=== PATIENT | male | born 1945 | race Two or more races ===

== ENCOUNTER → 2017-01-11 | Day surgery (SDC) | payer OTHER ==
[~2017-01-11] MED LIST: KETOROLAC TROMETHAMINE 30 MG/ML (IVP) VIAL IV PUSH ONE; MIDAZOLAM HCL 2 MG/2 ML VIAL ONE; MORPHINE SULFATE 4 MG/ML INJ ONE; PROPOFOL 100 MG/10 ML INJ IV ONE
--- NOTE | 2017-01-11 10:37 | MP ---
cc: JUNIOR SOSA M.D. DATE OF SURGERY 01/11/2017 PREOPERATIVE DIAGNOSIS Left knee stiffness following total knee arthroplasty. POSTOPERATIVE DIAGNOSIS Left knee stiffness following total knee arthroplasty. PROCEDURE Left knee manipulation under anesthesia. ANESTHESIA General SURGEON Junior Sosa MD ESTIMATED BLOOD LOSS None COMPLICATIONS None known. INDICATION Robbie Concepcion is a 71-year-old male who underwent left total knee arthroplasty and has subsequent stiffness of his knee. He is failing conservative management and therapy and indicated for manipulation under anesthesia. The risks and benefits thoroughly discussed and a detailed informed consent was obtained. PROCEDURE The patient brought into the operating room, he was placed under deep monitored anesthetic care and we measured his range of motion which was 0/20/80 degrees. We then proceeded with gentle manipulation into flexion and then back in extension and then repeated this maneuver multiple times. Maximal flexion was 140 degrees and gravity flexion was to 130. Maximum extension was 5 degrees of hyperextension and resting gravity extension was 2 degrees of hyperextension. No instability with varus/valgus stress testing. No unusual crepitation. The patient was awoken return recovery room in stable condition. MD MAGDALENA Cameron/TASHIA /10:17 AM /10:33 AM
== END | disposition home or self-care (01) ==
LOC: ESDC 08:05
PROVIDERS: ATTEND Orthopaedic Surgery Sports Medicine
DX: M24.662 Ankylosis, left knee (principal); Z96.652 Presence of left artificial knee joint
CPT/HCPCS: 01380; 27570; J1885; J2250; J2270; J3010